=== PATIENT | female | born 1975 ===

== ENCOUNTER 2019-01-05 11:59 | Inpatient (IN) | payer BC ==
[~2019-01-05] VITALS: Ht 167.6 cm; Wt 54.4 kg
--- NOTE | 2019-01-05 14:46 | History and Physical ---
History of Present Illness General Date patient seen: Jan 05, 2019 Reason for Hospitalization: Right breast abscess Present Illness HPI 43 year old healthy female presented with R breast abscess after recent liposuction and fat transfer to bilateral breasts on 12/28/[address] Vishnu Tam. Initially treated outpatient with Cephalexin, then switched to Bactrim , got worse and eventually underwent I & D and sent to the hospital for IV antibiotics. Patient denies diabetes or other medical problems. She does report having multiple abscesses in the past, one on her lower back and one on her chest wall underneath her right breast that required incision and drainage. Similar abscesses in mom and grandma. Denies any recurrent pneumonia or other viral infections. Hasn't been hospitalized with serious infectious as a child nor in adulthood. Travels back and forth to [place] a lot. Patient c/o subjective fever, chills, and malaise. has 7/10 pain in he right breast. Denies chest pain, sob, urinary symptoms, vaginal discharge, polyuria, or polydipsia. PMH: frequent skin abscesses Past Surgical history: Liposuction and fat transfer to bilateral breasts Family history: Mom and grandma also with frequent abscesses Social history: , sexually active with one person (), normal menstrual cycles, nulliparous, denies toxic habits (including etoh, tobacco, drugs), works as a property custodian Allergies: Coded Allergies: LATEX (Verified Allergy, Unknown, 01/05/19) Uncoded Allergies: hay fever (Allergy, Mild, 01/05/19) Medication History No Active Prescriptions or Reported Meds Patient History Healthcare decision maker Resuscitation status Advanced Directive on File Review of Systems Constitutional: Reports: no symptoms, see HPI, sweats, weakness, other Eye: Denies: no symptoms, see HPI, eye pain, blurred vision, tearing, double vision, nose pain, nose congestion, acuity changes, discharge, other ENT: Denies: no symptoms, see HPI, ear pain, ear discharge, nose pain, nose congestion, throat pain, throat swelling, mouth pain, hearing loss, nasal discharge, other Respiratory: Denies: no symptoms, see HPI, cough, orthopnea, shortness of breath, stridor, wheezing, REZA, sputum, other Cardiovascular: Denies: no symptoms, see HPI, chest pain, edema, palpitations, syncope, PND, other Gastrointestinal: Denies: no symptoms, see HPI, abdominal pain, constipation, diarrhea, nausea, vomiting, melena, hematemesis, other Genitourinary: Denies: no symptoms, see HPI, discharge, dysuria, frequency, hematuria, pain, retention, incontinence, urgency, vag bleed/dc, other Musculoskeletal: Denies: no symptoms, see HPI, back pain, gout, joint pain, joint swelling, muscle pain, muscle stiffness, other Skin: Reports: no symptoms, rash, change in color, change in hair/nails, dryness, lesions, other Psychiatric: Denies: no symptoms, see HPI, prior hx, anxiety, depressed feelings, emotional problems, SI, HI, hallucinations, other Neurological: Denies: no symptoms, see HPI, headache, numbness, paresthesia, seizure, tingling, tremors, focal weakness, syncope, dizziness, other Endocrine: Denies: no symptoms, see HPI, excessive sweating, flushing, intolerance to temperature, increased thirst, increased urine, unexplained weight loss, other Hematologic/Lymphatic: Denies: no symptoms, see HPI, anemia, blood clots, easy bleeding, easy bruising, swollen glands, diathesis, other Physical Exam General Appearance: no apparent distress, alert HEENT: normocephalic, atraumatic, anicteric, mucous membranes moist, EOMI, supple, no JVD Neck: supple, normal inspection Respiratory/Chest: lungs clear, normal breath sounds, no respiratory distress Breasts: other - Left breast normal, Right breast extremly tender, +erythema, + dressing c/d/i Cardiovascular/Chest: normal peripheral pulses, normal rate, regular rhythm Abdomen: normal bowel sounds, non tender, soft, no organomegaly, no mass Extremities: normal range of motion, no calf tenderness, no edema Skin Exam: warm/dry Neurologic: events director II-XII grossly normal, no motor/sensory deficits, alert, oriented x 3, normal mood/affect Musculoskeletal: normal muscle bulk BP 100/63, pulse 76, temp 98 F, rr 18, O2 sats 98% on room air Laboratory Tests Test 01/05/19 17:30 White Blood Count 10.9 K/UL (4.8-10.8) H Red Blood Count 3.29 M/UL (4.20-5.40) L Hemoglobin 10.0 G/DL (12.0-16.0) L Hematocrit 28.8 % (37.0-47.0) L Mean Corpuscular Volume 87 FL (80-99) Mean Corpuscular Hemoglobin 30.4 PG (27.0-31.0) Mean Corpuscular Hemoglobin Concent 34.8 G/DL (32.0-36.0) Red Cell Distribution Width 10.5 % (11.6-14.8) L Platelet Count 221 K/UL (150-450) Mean Platelet Volume 7.2 FL (6.5-10.1) Neutrophils (%) (Auto) 73.2 % (45.0-75.0) Lymphocytes (%) (Auto) 15.9 % (20.0-45.0) L Monocytes (%) (Auto) 8.6 % (1.0-10.0) Eosinophils (%) (Auto) 1.5 % (0.0-3.0) Basophils (%) (Auto) 0.9 % (0.0-2.0) Prothrombin Time 10.1 SEC (9.30-11.50) Prothrombin Time INR 0.9 (0.9-1.1) PTT 31 SEC (23-33) Sodium Level 138 MMOL/L (136-145) Potassium Level 3.5 MMOL/L (3.5-5.1) Chloride Level 104 MMOL/L (98-107) Carbon Dioxide Level 30 MMOL/L (21-32) Anion Gap 4 mmol/L (5-15) L Blood Urea Nitrogen 7 mg/dL (7-18) Creatinine 0.6 MG/DL (0.55-1.30) Estimate Glomerular Filtration Rate > 60 mL/min (>60) Glucose Level 115 MG/DL (74-106) H Calcium Level 8.2 MG/DL (8.5-10.1) L Magnesium Level 1.8 MG/DL (1.8-2.4) Total Bilirubin 0.3 MG/DL (0.2-1.0) Aspartate Amino Transferase (AST) 15 U/L (15-37) Alanine Aminotransferase (ALT) 25 U/L (12-78) Alkaline Phosphatase 33 U/L (46-116) L Total Protein 6.6 G/DL (6.4-8.2) Albumin 2.9 G/DL (3.4-5.0) L Globulin 3.7 g/dL Albumin/Globulin Ratio 0.8 (1.0-2.7) L Assessment/Plan Problem List: (1) Abscess of right breast ICD Codes: N61.1 - Abscess of the breast and nipple SNOMED: 48009704 Status: stable Assessment/Plan: 43 year old with R breast abscess after liposuction and fat transfer, now s/p ID. Afebrile, soft BP, mild leukocytosis without left shift, mild lymphopenia. #R breast abscess. ? developing sepsis #History of frequent superficial abscesses. ? Staphylococcal carriage vs underlying primary immunodeficiency i.e chronic granulomatous disease #r/o DM #Mild lymphopenia- ?stress induced- monitor -Admit to [facility] -Dr. Vishnu Tam plastic surgery consult- d/w -follow up gm stain and culture from I&D -IV NS @ 125 ml/hr -IV Cefepime (01/05-) -IV Vancomycin (01/05-) pharmacy to dose -Blood cultures x2 -ID consult with Dr. Rizzo- d/w -Consider outpatient immunology follow up. Genetic testing -Follow up HbA1c #Normocytic anemia (low RDW), unlikely iron deficiency check anemia panel including B12 and folate #Hypoalbuminemia- ?malnutrition vs acute phase Check UA for proteinuria vte ppx: ambulation, scd boots GI ppx: Not indicated Diet: Regular Code status: Full code I spent 70 minutes during this encounter. > 50% spent on counselling and care coordination. Plan of care discussed with patient and , and Dr Fountain. Hansel Jacobs M.D. Jan 05, 2019 14:45
--- NOTE | 2019-01-05 15:00 | NUR ---
NURSE NOTES: Patient arrived in unit accompanied by spouse. Ambulatory, alert and oriented x 4, very pleasant disposition. Assessment of all systems done, vital signs taken and recorded. All belongings accounted for, form signed by the patient. Oriented to room and call light. With surgical wound under right breast, dressing dry and intact. Seen by Dr Jacobs, orders in. HOB elevated. Bed locked in lowest position. Call light within reach. Will continue plan of care.
[2019-01-05] MEDS ORDERED: Acetaminophen 500mg (ES) tab ORAL PRN (15:45)
[2019-01-05] MEDS ORDERED: Tylenol #3 tab (300mg/30mg) ORAL PRN (15:45)
[2019-01-05 16:00] VITALS: BP 100/63
[2019-01-05 18:00] LABS: BASOPHILS % (AUTO) 0.9 % (0.0-2.0); EOSINOPHILS % (AUTO) 1.5 % (0.0-3.0); HEMATOCRIT 28.8 % (37.0-47.0); LYMPHOCYTES % (AUTO) 15.9 % (20.0-45.0); MEAN CORPUSCULAR VOLUME 87 FL (80-99); MONOCYTES % (AUTO) 8.6 % (1.0-10.0); NEUTROPHILS % (AUTO) 73.2 % (45.0-75.0); PLATELET COUNT 221 K/UL (150-450); RED BLOOD COUNT 3.29 M/UL (4.20-5.40); RED CELL DISTRIBUTION WIDTH 10.5 % (11.6-14.8); WHITE BLOOD COUNT 10.9 K/UL (4.8-10.8)
[2019-01-05] MEDS ORDERED: Vancomycin 1.5gm/NS Premix 275 ML IVPB SCH (18:00)
[2019-01-05 18:06] LABS: INR 0.9 (0.9-1.1)
[2019-01-05 18:30] LABS: ALANINE AMINOTRANSFERASE 25 U/L (12-78); ALBUMIN 2.9 G/DL (3.4-5.0); ALBUMIN/GLOBULIN RATIO 0.8 (1.0-2.7); ALKALINE PHOSPHATASE 33 U/L (46-116); ANION GAP 4 mmol/L (5-15); ASPARTATE AMINO TRANSFERASE 15 U/L (15-37); BILIRUBIN,TOTAL 0.3 MG/DL (0.2-1.0); BLOOD UREA NITROGEN 7 mg/dL (7-18); CALCIUM 8.2 MG/DL (8.5-10.1); CARBON DIOXIDE 30 MMOL/L (21-32); CHLORIDE 104 MMOL/L (98-107); CREATININE 0.6 MG/DL (0.55-1.30); POTASSIUM 3.5 MMOL/L (3.5-5.1); SODIUM 138 MMOL/L (136-145)
[2019-01-05] MEDS: HYDROcodone/Acetamin 5/325 tab ORAL PRN (18:57)
[2019-01-05] MEDS: Cefepime HCl 2 GM in D5W 55 ML IVPB SCH (19:03)
--- NOTE | 2019-01-05 19:55 | NUR ---
HAND-OFF: Report given to
--- NOTE | 2019-01-05 19:56 | NUR ---
NURSE NOTES: Received patient in no apparent distress. A&OX4. IV site patent and intact. Bed in lowest position. Call light within reach. Will continue to monitor.
[2019-01-05 20:00] VITALS: BP 96/57
[2019-01-06] VITALS: BP 90/59
[2019-01-06] MEDS: Cefepime HCl 2 GM in D5W 55 ML IVPB SCH ×2 (05:27→17:57)
[2019-01-06] MEDS: HYDROcodone/Acetamin 5/325 tab ORAL PRN ×3 (05:33→18:04)
[2019-01-06 06:53] LABS: BASOPHILS % (AUTO) 0.9 % (0.0-2.0); EOSINOPHILS % (AUTO) 2.7 % (0.0-3.0); HEMATOCRIT 28.8 % (37.0-47.0); HEMOGLOBIN 9.6 G/DL (12.0-16.0); LYMPHOCYTES % (AUTO) 18.9 % (20.0-45.0); MEAN CORPUSCULAR VOLUME 90 FL (80-99); MONOCYTES % (AUTO) 10.1 % (1.0-10.0); NEUTROPHILS % (AUTO) 67.4 % (45.0-75.0); PLATELET COUNT 202 K/UL (150-450); RED BLOOD COUNT 3.21 M/UL (4.20-5.40); RED CELL DISTRIBUTION WIDTH 11.7 % (11.6-14.8); WHITE BLOOD COUNT 9.4 K/UL (4.8-10.8)
[2019-01-06 07:25] LABS: ALANINE AMINOTRANSFERASE 27 U/L (12-78); ALBUMIN 2.7 G/DL (3.4-5.0); ALBUMIN/GLOBULIN RATIO 0.8 (1.0-2.7); ALKALINE PHOSPHATASE 38 U/L (46-116); ANION GAP 4 mmol/L (5-15); ASPARTATE AMINO TRANSFERASE 17 U/L (15-37); BILIRUBIN,TOTAL 0.3 MG/DL (0.2-1.0); BLOOD UREA NITROGEN 8 mg/dL (7-18); CALCIUM 8.2 MG/DL (8.5-10.1); CARBON DIOXIDE 29 MMOL/L (21-32); CHLORIDE 104 MMOL/L (98-107); CREATININE 0.7 MG/DL (0.55-1.30); FERRITIN 137 NG/ML (8-388); SODIUM 137 MMOL/L (136-145)
--- NOTE | 2019-01-06 07:35 | NUR ---
HAND-OFF: Report given to Zara PRINCE.
[2019-01-06 07:53] LABS: % IRON SATURATION 8 % (15-50); IRON 18 ug/dL (50-175); TOTAL IRON BINDING CAPACITY 229 ug/dL (250-450)
[2019-01-06 08:00] VITALS: BP 99/65
--- NOTE | 2019-01-06 08:05 | NUR ---
NURSE NOTES: Pt received from Timbo PRINCE. Pt awake, AOx4 with no complaints of pain and no s/sx of distress. RR even and unlabored on RA. Dressing dry and intact. Pt requesting Claritin for congestion. Side rails upx2, bed low and locked, call light within reach. Will continue to monitor.
[2019-01-06] MEDS: Vancomycin 750mg/NS 275ml IVPB SCH ×4 (08:46→20:25)
--- NOTE | 2019-01-06 10:33 | General Progress Note ---
Assessment/Plan Problem List: (1) Abscess of right breast ICD Codes: N61.1 - Abscess of the breast and nipple SNOMED: 60230779 (2) Iron deficiency anemia ICD Codes: D50.9 - Iron deficiency anemia, unspecified SNOMED: 83745112 (3) Mild protein-calorie malnutrition ICD Codes: E44.1 - Mild protein-calorie malnutrition SNOMED: 185078632 (4) Lymphopenia ICD Codes: D72.810 - Lymphocytopenia SNOMED: 06003207 Status: stable Assessment/Plan: 43 year old with R breast abscess after liposuction and fat transfer, now s/p ID. Afebrile, soft BP, mild leukocytosis without left shift. #R breast cellulitis/ abscess #History of frequent superficial abscesses. ? Staphylococcal carriage vs underlying primary immunodeficiency (i.e chronic granulomatous disease) #r/o DM HbA1c 4.9 -medsurg -Dr. Vishnu Tam plastic surgery consult- d/w -follow up gm stain and culture from I&D ----> 3+ gram positive cocci, 2+ gram negative rods, 3+ PMN's, Anaerobic culture: 4+ Prevotella Bivia Beta lactamase positive -IV NS @ 125 ml/hr -IV Cefepime (01/05-) -IV Vancomycin (01/05-) pharmacy to dose -ADD IV metronidazole (01/06-) -Blood cultures x2 -ID consult with Dr. Rizzo- Dr. Crabtree covering d/w -Consider outpatient immunology follow up. Genetic testing -Nasal swab for MRSA #Normocytic anemia, Iron panel consistent with iron deficiency. B12 and folate levels are okay. Has heavy menses and also could be component of nutritional deficiency and lack of eating red meat. Patient knows she has iron deficiency, takes supplements on and off, doesn't think it works. -Will hold off on iron supplements since has an infection now. #Hypoalbuminemia, lymphopenia. consistent with mild protein calorie malnutrition. Says recent HIV testing is negative check UA Encouraged po intake. Patient to ask for previous lab results. She is not aware of low albumin. vte ppx: ambulation, scd boots GI ppx: Not indicated Diet: Regular Code status: Full code I spent 30 minutes during this encounter. > 50% spent on counselling and care coordination. Plan of care discussed with patient and , and Dr Fountain. Subjective Date patient seen: Jan 06, 2019 ROS Limited/Unobtainable: No Constitutional: Reports: no symptoms, chills, diaphoresis, fever, malaise, weakness, other - pain in the right breast HEENT: Denies: no symptoms, eye pain, blurred vision, tearing, double vision, ear pain, ear discharge, nose pain, nose congestion, throat pain, throat swelling, mouth pain, mouth swelling, other Cardiovascular: Denies: no symptoms, chest pain, edema, irregular heart rate, lightheadedness, palpitations, syncope, other Respiratory: Denies: no symptoms, cough, orthopnea, shortness of breath, SOB with excertion, SOB at rest, sputum, stridor, wheezing, other Gastrointestinal/Abdominal: Denies: no symptoms, abdomen distended, abdominal pain, black stools, tarry stools, blood in stool, constipated, diarrhea, difficulty swallowing, nausea, poor appetite, poor fluid intake, rectal bleeding , vomiting, other Genitourinary: Denies: no symptoms, burning, discharge, frequency, flank pain, hematuria, incontinence, pain, urgency, other Endocrine: Denies: no symptoms, excessive sweating, flushing, intolerance to cold, intolerance to heat, increased hunger, increased thirst, increased urine, unexplained weight gain, unexplained weight loss, other Hematologic/Lymphatic: Denies: no symptoms, anemia, easy bleeding, easy bruising, other Allergies: Coded Allergies: LATEX (Verified Allergy, Unknown, 01/05/19) Uncoded Allergies: hay fever (Allergy, Mild, 01/05/19) Subjective seen and examined. VSS. no fever or chills. wondering when she can go home Objective Last 24 Hour Vital Signs Date Time Temp Pulse Resp B/P (MAP) Pulse Ox O2 Delivery O2 Flow Rate FiO2 01/06/19 09:00 Room Air 01/06/19 08:00 98.0 88 18 99/65 (76) 97 01/06/19 04:00 18 01/06/19 00:00 98.3 77 18 90/59 (69) 97 01/05/19 21:00 Room Air 01/05/19 20:00 98.0 84 17 96/57 (70) 98 01/05/19 16:00 98.0 76 18 100/63 (75) 01/05/19 15:19 Room Air Intake and Output 01/05/19 01/06/19 19:00 07:00 Intake Total 1835 ml Balance 1835 ml Intake Oral 780 ml IV Total 1055 ml # Voids 3 Laboratory Tests 01/05/19 17:30: White Blood Count 10.9H, Red Blood Count 3.29L, Hemoglobin 10.0L, Hematocrit 28.8L, Mean Corpuscular Volume 87, Mean Corpuscular Hemoglobin 30.4, Mean Corpuscular Hemoglobin Concent 34.8, Red Cell Distribution Width 10.5L, Platelet Count 221, Mean Platelet Volume 7.2, Neutrophils (%) (Auto) 73.2, Lymphocytes (%) (Auto) 15.9L, Monocytes (%) (Auto) 8.6, Eosinophils (%) (Auto) 1.5, Basophils (%) (Auto) 0.9, Prothrombin Time 10.1, Prothromb Time International Ratio 0.9, Activated Partial Thromboplast Time 31, Sodium Level 138, Potassium Level 3.5, Chloride Level 104, Carbon Dioxide Level 30, Anion Gap 4L, Blood Urea Nitrogen 7, Creatinine 0.6, Estimat Glomerular Filtration Rate > 60, Glucose Level 115H, Calcium Level 8.2L, Magnesium Level 1.8, Total Bilirubin 0.3, Aspartate Amino Transf (AST/SGOT) 15, Alanine Aminotransferase ( ALT/SGPT) 25, Alkaline Phosphatase 33L, Total Protein 6.6, Albumin 2.9L, Globulin 3.7, Albumin/Globulin Ratio 0.8L 01/06/19 06:40: White Blood Count 9.4, Red Blood Count 3.21L, Hemoglobin 9.6L, Hematocrit 28.8L , Mean Corpuscular Volume 90, Mean Corpuscular Hemoglobin 29.9, Mean Corpuscular Hemoglobin Concent 33.3, Red Cell Distribution Width 11.7, Platelet Count 202, Mean Platelet Volume 6.9, Neutrophils (%) (Auto) 67.4, Lymphocytes (% ) (Auto) 18.9L, Monocytes (%) (Auto) 10.1H, Eosinophils (%) (Auto) 2.7, Basophils (%) (Auto) 0.9, Sodium Level 137, Potassium Level 4.0, Chloride Level 104, Carbon Dioxide Level 29, Anion Gap 4L, Blood Urea Nitrogen 8, Creatinine 0.7, Estimat Glomerular Filtration Rate > 60, Glucose Level 97, Calcium Level 8.2L, Total Bilirubin 0.3, Aspartate Amino Transf (AST/SGOT) 17, Alanine Aminotransferase (ALT/SGPT) 27, Alkaline Phosphatase 38L, Total Protein 6.2L, Albumin 2.7L, Globulin 3.5, Albumin/Globulin Ratio 0.8L, Hemoglobin A1c 4.9, Iron Level 18L, Total Iron Binding Capacity 229L, Percent Iron Saturation 8L, Unsaturated Iron Binding 211, Ferritin 137, Vitamin B12 Level 1360H, Folate 30.6 Height (Feet): 5 Height (Inches): 6.00 Weight (Pounds): 120 Objective General Appearance: no apparent distress, alert HEENT: normocephalic, atraumatic, anicteric, mucous membranes moist, EOMI, supple, no JVD Neck: supple, normal inspection Respiratory/Chest: lungs clear, normal breath sounds, no respiratory distress Breasts: other - Left breast normal, Right breast extremly tender, +erythema, + dressing c/d/i Cardiovascular/Chest: normal peripheral pulses, normal rate, regular rhythm Abdomen: normal bowel sounds, non tender, soft, no organomegaly, no mass Extremities: normal range of motion, no calf tenderness, no edema Skin Exam: warm/dry 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, no motor/sensory deficits, alert, oriented x 3, normal mood/affect Musculoskeletal: normal muscle bulk BP 100/63, pulse 76, temp 98 F, rr 18, O2 sats 98% on room air Laboratory Tests Test 01/05/19 17:30 01/06/19 06:40 White Blood Count 10.9 K/UL (4.8-10.8) H 9.4 K/UL (4.8-10.8) Red Blood Count 3.29 M/UL (4.20-5.40) L 3.21 M/UL (4.20-5.40) L Hemoglobin 10.0 G/DL (12.0-16.0) L 9.6 G/DL (12.0-16.0) L Hematocrit 28.8 % (37.0-47.0) L 28.8 % (37.0-47.0) L Mean Corpuscular Volume 87 FL (80-99) 90 FL (80-99) Mean Corpuscular Hemoglobin 30.4 PG (27.0-31.0) 29.9 PG (27.0-31.0) Mean Corpuscular Hemoglobin Concent 34.8 G/DL (32.0-36.0) 33.3 G/DL (32.0-36.0) Red Cell Distribution Width 10.5 % (11.6-14.8) L 11.7 % (11.6-14.8) Platelet Count 221 K/UL (150-450) 202 K/UL (150-450) Mean Platelet Volume 7.2 FL (6.5-10.1) 6.9 FL (6.5-10.1) Neutrophils (%) (Auto) 73.2 % (45.0-75.0) 67.4 % (45.0-75.0) Lymphocytes (%) (Auto) 15.9 % (20.0-45.0) L 18.9 % (20.0-45.0) L Monocytes (%) (Auto) 8.6 % (1.0-10.0) 10.1 % (1.0-10.0) H Eosinophils (%) (Auto) 1.5 % (0.0-3.0) 2.7 % (0.0-3.0) Basophils (%) (Auto) 0.9 % (0.0-2.0) 0.9 % (0.0-2.0) Prothrombin Time 10.1 SEC (9.30-11.50) Prothrombin Time INR 0.9 (0.9-1.1) PTT 31 SEC (23-33) Sodium Level 138 MMOL/L (136-145) 137 MMOL/L (136-145) Potassium Level 3.5 MMOL/L (3.5-5.1) 4.0 MMOL/L (3.5-5.1) Chloride Level 104 MMOL/L (98-107) 104 MMOL/L (98-107) Carbon Dioxide Level 30 MMOL/L (21-32) 29 MMOL/L (21-32) Anion Gap 4 mmol/L (5-15) L 4 mmol/L (5-15) L Blood Urea Nitrogen 7 mg/dL (7-18) 8 mg/dL (7-18) Creatinine 0.6 MG/DL (0.55-1.30) 0.7 MG/DL (0.55-1.30) Estimate Glomerular Filtration Rate > 60 mL/min (>60) > 60 mL/min (>60) Glucose Level 115 MG/DL (74-106) H 97 MG/DL (74-106) Calcium Level 8.2 MG/DL (8.5-10.1) L 8.2 MG/DL (8.5-10.1) L Magnesium Level 1.8 MG/DL (1.8-2.4) Total Bilirubin 0.3 MG/DL (0.2-1.0) 0.3 MG/DL (0.2-1.0) Aspartate Amino Transferase (AST) 15 U/L (15-37) 17 U/L (15-37) Alanine Aminotransferase (ALT) 25 U/L (12-78) 27 U/L (12-78) Alkaline Phosphatase 33 U/L (46-116) L 38 U/L (46-116) L Total Protein 6.6 G/DL (6.4-8.2) 6.2 G/DL (6.4-8.2) L Albumin 2.9 G/DL (3.4-5.0) L 2.7 G/DL (3.4-5.0) L Globulin 3.7 g/dL 3.5 g/dL Albumin/Globulin Ratio 0.8 (1.0-2.7) L 0.8 (1.0-2.7) L Reticulocyte Count Pending Hemoglobin A1c 4.9 % (4.3-6.0) Iron Level 18 ug/dL (50-175) L Total Iron Binding Capacity 229 ug/dL (250-450) L Percent Iron Saturation 8 % (15-50) L Unsaturated Iron Binding 211 ug/dL (112-346) Ferritin 137 NG/ML (8-388) Vitamin B12 Level 1360 PG/ML (193-986) H Folate 30.6 NG/ML (8.6-58.9) Hansel Jacobs M.D. Jan 06, 2019 10:33
--- NOTE | 2019-01-06 11:00 | NUR ---
NURSE NOTES: Dressing changed.
[2019-01-06 12:00] VITALS: BP 115/77
[2019-01-06] MEDS: Ascorbic Acid 500mg tab ORAL SCH ×2 (12:45→17:57)
--- NOTE | 2019-01-06 13:06 | General Progress Note ---
Assessment/Plan Status: stable Status Narrative s/p lipo with fat transfer to breasts complicated by cellulitis and abscess formation to right breast. s/p I and D of right Breast Assessment/Plan: IV abx per ID ID consult apprecated daily dressing changes to be dome by me Subjective Date patient seen: Jan 06, 2019 ROS Limited/Unobtainable: No Constitutional: Denies: no symptoms, chills, diaphoresis, fever, malaise, weakness, other HEENT: Denies: no symptoms, eye pain, blurred vision, tearing, double vision, ear pain, ear discharge, nose pain, nose congestion, throat pain, throat swelling, mouth pain, mouth swelling, other Cardiovascular: Denies: no symptoms, chest pain, edema, irregular heart rate, lightheadedness, palpitations, syncope, other Respiratory: Denies: no symptoms, cough, orthopnea, shortness of breath, SOB with excertion, SOB at rest, sputum, stridor, wheezing, other Gastrointestinal/Abdominal: Denies: no symptoms, abdomen distended, abdominal pain, black stools, tarry stools, blood in stool, constipated, diarrhea, difficulty swallowing, nausea, poor appetite, poor fluid intake, rectal bleeding , vomiting, other Genitourinary: Denies: no symptoms, burning, discharge, frequency, flank pain, hematuria, incontinence, pain, urgency, other Neurologic/Psychiatric: Denies: no symptoms, anxiety, depressed, emotional problems, headache, numbness, paresthesia, pre-existing deficit, seizure, tingling, tremors, weakness, other Endocrine: Denies: no symptoms, excessive sweating, flushing, intolerance to cold, intolerance to heat, increased hunger, increased thirst, increased urine, unexplained weight gain, unexplained weight loss, other Hematologic/Lymphatic: Denies: no symptoms, anemia, easy bleeding, easy bruising, other Allergies: Coded Allergies: LATEX (Verified Allergy, Unknown, 01/05/19) Uncoded Allergies: hay fever (Allergy, Mild, 01/05/19) All Systems: reviewed and negative except above Subjective feeling better, pain controlled, denies F/C/NV Objective Last 24 Hour Vital Signs Date Time Temp Pulse Resp B/P (MAP) Pulse Ox O2 Delivery O2 Flow Rate FiO2 01/06/19 12:25 98.3 01/06/19 12:00 98.3 97 18 115/77 (90) 98 01/06/19 09:00 Room Air 01/06/19 08:00 98.0 88 18 99/65 (76) 97 01/06/19 04:00 18 01/06/19 00:00 98.3 77 18 90/59 (69) 97 01/05/19 21:00 Room Air 01/05/19 20:00 98.0 84 17 96/57 (70) 98 01/05/19 16:00 98.0 76 18 100/63 (75) 01/05/19 15:19 Room Air Intake and Output 01/05/19 01/06/19 19:00 07:00 Intake Total 1835 ml Balance 1835 ml Intake Oral 780 ml IV Total 1055 ml # Voids 3 Laboratory Tests 01/05/19 17:30: White Blood Count 10.9H, Red Blood Count 3.29L, Hemoglobin 10.0L, Hematocrit 28.8L, Mean Corpuscular Volume 87, Mean Corpuscular Hemoglobin 30.4, Mean Corpuscular Hemoglobin Concent 34.8, Red Cell Distribution Width 10.5L, Platelet Count 221, Mean Platelet Volume 7.2, Neutrophils (%) (Auto) 73.2, Lymphocytes (%) (Auto) 15.9L, Monocytes (%) (Auto) 8.6, Eosinophils (%) (Auto) 1.5, Basophils (%) (Auto) 0.9, Prothrombin Time 10.1, Prothromb Time International Ratio 0.9, Activated Partial Thromboplast Time 31, Sodium Level 138, Potassium Level 3.5, Chloride Level 104, Carbon Dioxide Level 30, Anion Gap 4L, Blood Urea Nitrogen 7, Creatinine 0.6, Estimat Glomerular Filtration Rate > 60, Glucose Level 115H, Calcium Level 8.2L, Magnesium Level 1.8, Total Bilirubin 0.3, Aspartate Amino Transf (AST/SGOT) 15, Alanine Aminotransferase ( ALT/SGPT) 25, Alkaline Phosphatase 33L, Total Protein 6.6, Albumin 2.9L, Globulin 3.7, Albumin/Globulin Ratio 0.8L 01/06/19 06:40: White Blood Count 9.4, Red Blood Count 3.21L, Hemoglobin 9.6L, Hematocrit 28.8L , Mean Corpuscular Volume 90, Mean Corpuscular Hemoglobin 29.9, Mean Corpuscular Hemoglobin Concent 33.3, Red Cell Distribution Width 11.7, Platelet Count 202, Mean Platelet Volume 6.9, Neutrophils (%) (Auto) 67.4, Lymphocytes (% ) (Auto) 18.9L, Monocytes (%) (Auto) 10.1H, Eosinophils (%) (Auto) 2.7, Basophils (%) (Auto) 0.9, Sodium Level 137, Potassium Level 4.0, Chloride Level 104, Carbon Dioxide Level 29, Anion Gap 4L, Blood Urea Nitrogen 8, Creatinine 0.7, Estimat Glomerular Filtration Rate > 60, Glucose Level 97, Calcium Level 8.2L, Total Bilirubin 0.3, Aspartate Amino Transf (AST/SGOT) 17, Alanine Aminotransferase (ALT/SGPT) 27, Alkaline Phosphatase 38L, Total Protein 6.2L, Albumin 2.7L, Globulin 3.5, Albumin/Globulin Ratio 0.8L, Reticulocyte Count [ Pending], Hemoglobin A1c 4.9, Iron Level 18L, Total Iron Binding Capacity 229L, Percent Iron Saturation 8L, Unsaturated Iron Binding 211, Ferritin 137, Vitamin B12 Level 1360H, Folate 30.6 Height (Feet): 5 Height (Inches): 6.00 Weight (Pounds): 120 Objective Right beast swelling improved, minimal erythema but still present. packing changed at bedside. min serous drainage Vishnu Tam MD Jan 06, 2019 13:06
[2019-01-06 15:58] VITALS: BP 121/74
--- NOTE | 2019-01-06 16:19 | NUR ---
CASE MANAGEMENT:INITIAL REVIEW DIRECT ADMIT: PMH: S/P LIPOSUCTION AND FAT TRANSFER TO RIGHT BREAST SI: RIGHT BREAST ABSCESS 98.0 76 18 100/63 98% ON RA CA+ 8.2 IS: IV VANCOMYCIN Q12HR IVF NS @125HR IV CEFEPIME Q12HR 3E MED /SURG CASE MANAGEMENT: REVIEW 01/06/19 SI: RIGHT BREAST ABSCESS 98.0 88 18 99/65 97% ON RA CA+ 8.2 RBC 3.21 H/H 9.6/28.8 IS: IV VANCOMYCIN Q12HR IVF NS @125HR IV CEFEPIME Q12HR IV METRONIDAZOLE Q8HR FEOSOL PO TID : 3E MED SURG UNIT
--- NOTE | 2019-01-06 19:29 | NUR ---
HAND-OFF: Report given to Cherise PRINCE. Patient stable.
--- NOTE | 2019-01-06 19:31 | NUR ---
NURSE NOTES: Patient is in bed, awake and alert x4. On room air with no signs of distress or SOB. Dressing on R breast dry and intact. Bed locked and in lowest position. Call light within reach. Will continue to monitor.
[2019-01-06 20:00] VITALS: BP 112/74
--- NOTE | 2019-01-06 21:03 | Consultation ---
DATE OF CONSULTATION: 01/06/2019 INFECTIOUS DISEASE CONSULTATION This consult is for coverage of Dr. Rizzo. CONSULTING PHYSICIAN: Lg Crabtree M.D. PRIMARY ATTENDING PHYSICIAN: Alex Zee M.D. REASON FOR CONSULT: Right breast abscess. HISTORY OF PRESENT ILLNESS: This is a 43-year-old white female admitted yesterday from home. The patient has a history of recent liposuction and fat transfer to both breasts. Four days after surgery she developed pain and subjective fever. Pain is in the right breast area. Yesterday, she had a visit to the surgeon's office and they did an I and D of abscess in the right breast area. The patient states that she also had frequent abscesses in the past. PAST MEDICAL HISTORY: Iron deficiency anemia, had previous skin abscess. ALLERGIES: Latex. MEDICATIONS: Vancomycin, loratadine, sodium chloride, diphenhydramine, cefepime, Zofran, [place], and Tylenol No. 3. SOCIAL HISTORY: . No history of alcohol, drug abuse, and smoking. REVIEW OF SYSTEMS: No fever and no chills in the hospital. No coughing. No shortness of breath. No chest pain. No nausea. No vomiting. No dysuria. PHYSICAL EXAMINATION: VITAL SIGNS: Temperature is 98, pulse 88, and blood pressure 99/65. GENERAL APPEARANCE: No acute distress. Seems to be thin. HEAD AND NECK: [place] conjunctivae. No oral lesion. HEART: S1, S2, regular. LUNGS: Clear. ABDOMEN: Soft, nontender. EXTREMITIES: No edema. NEUROLOGIC: She is awake, alert, and oriented x3. Ambulatory. SKIN: Small surgical dressing in the middle right breast. LABORATORY AND DIAGNOSTIC DATA: Sodium 137, potassium 4, chloride 104, bicarb 29, BUN 8, and creatinine 0.7. Iron is 18. Total iron binding . Albumin is also low at 2.7. WBC 9.4, hemoglobin 9.6, hematocrit 28.8. Lymphocyte count is 18.9. Monocyte is slightly elevated at 10.1. IMPRESSION: 1. Right breast abscess, status post I and D. 2. History of multiple abscess will try to rule out methicillin resistant Staphylococcus aureus colonization, although the patient's abscesses were far apart in time. 3. The patient has iron deficiency anemia. RECOMMENDATION: Continue cefepime and vancomycin. We will ask for nasal swab for MRSA. We will consider checking immunoglobulin level. At the end of my exam, I thank Dr. Zee for involving me in the care of this patient. Lg Crabtree M.D. DR: WALT JOB#: [id number] CC: KATY
[2019-01-07] VITALS: BP 94/70
[2019-01-07 04:00] VITALS: BP 97/64
[2019-01-07] MEDS: Cefepime HCl 2 GM in D5W 55 ML IVPB SCH ×2 (05:18→17:59)
[2019-01-07 06:04] LABS: BASOPHILS % (AUTO) 1.2 % (0.0-2.0); HEMATOCRIT 28.2 % (37.0-47.0); HEMOGLOBIN 9.4 G/DL (12.0-16.0); LYMPHOCYTES % (AUTO) 20.6 % (20.0-45.0); MEAN CORPUSCULAR VOLUME 89 FL (80-99); MONOCYTES % (AUTO) 9.1 % (1.0-10.0); NEUTROPHILS % (AUTO) 66.1 % (45.0-75.0); PLATELET COUNT 204 K/UL (150-450); RED BLOOD COUNT 3.16 M/UL (4.20-5.40); RED CELL DISTRIBUTION WIDTH 11.6 % (11.6-14.8); WHITE BLOOD COUNT 7.2 K/UL (4.8-10.8)
[2019-01-07 06:39] LABS: ANION GAP 3 mmol/L (5-15); BLOOD UREA NITROGEN 7 mg/dL (7-18); CALCIUM 7.9 MG/DL (8.5-10.1); CARBON DIOXIDE 27 MMOL/L (21-32); CHLORIDE 105 MMOL/L (98-107); CREATININE 0.7 MG/DL (0.55-1.30); POTASSIUM 3.6 MMOL/L (3.5-5.1); SODIUM 135 MMOL/L (136-145)
--- NOTE | 2019-01-07 07:11 | NUR ---
NURSE NOTES: Patient calcium noted to be 7.9 this morning. organ builder notified. Left message with primary MD. Awaiting callback.
--- NOTE | 2019-01-07 07:18 | NUR ---
HAND-OFF: Report given to NIKI Zuñiga.
--- NOTE | 2019-01-07 07:20 | NUR ---
NURSE NOTES: Pt received from Cherise PRINCE. Pt sleeping. No s/sx of distress. RR even and unlabored on RA. Side rails upx2, bed low and locked, call light within reach. Will continue to monitor.
--- NOTE | 2019-01-07 07:47 | NUR ---
NURSE NOTES: Spoke with Dr. Morales regarding Calcium of 7.9. Per MD since albumin is low too at 2.7 it is okay but to report it to Dr. Jacobs when she rounds.
[2019-01-07 08:00] VITALS: BP 108/72
[2019-01-07] MEDS: Vancomycin 750mg/NS 275ml IVPB SCH ×8 (09:00→21:59)
[2019-01-07] MEDS: Ascorbic Acid 500mg tab ORAL SCH ×3 (09:11→17:59)
--- NOTE | 2019-01-07 09:41 | General Progress Note ---
Assessment/Plan Problem List: (1) Abscess of right breast ICD Codes: N61.1 - Abscess of the breast and nipple SNOMED: 28039031 (2) Iron deficiency anemia ICD Codes: D50.9 - Iron deficiency anemia, unspecified SNOMED: 79513833 (3) Mild protein-calorie malnutrition ICD Codes: E44.1 - Mild protein-calorie malnutrition SNOMED: 343796915 (4) Lymphopenia ICD Codes: D72.810 - Lymphocytopenia SNOMED: 73987381 Status: stable Assessment/Plan: 43 year old with R breast abscess after liposuction and fat transfer, now s/p ID. Afebrile, normal BP, mild leukocytosis without left shift resolving. #R breast cellulitis/ abscess. #History of frequent superficial abscesses. ? Staphylococcal carriage vs underlying primary immunodeficiency (i.e chronic granulomatous disease) #r/o DM HbA1c 4.9 -medsurg -Dr. Vishnu Tam plastic surgery consult- d/w -follow up gm stain and culture from I&D ----> 3+ gram positive cocci, 2+ gram negative rods, 3+ PMN's, Anaerobic culture: 4+ Prevotella [place] Beta lactamase positive -IV NS @ 50 ml/hr -IV Cefepime (01/05-) -IV Vancomycin (01/05-) pharmacy to dose -ADD IV metronidazole (01/06-) -Probiotics- patient has her own, asked nurse to send to the pharmacy to register. -Blood cultures x2 -ID consult with Dr. Rizzo- d/w -Consider outpatient immunology follow up. Genetic testing -Nasal swab culture for MRSA -Pain control -d/w rn #Normocytic anemia, Iron panel consistent with iron deficiency. B12 and folate levels are okay. Has heavy menses and also could be component of nutritional deficiency and lack of eating red meat. Patient knows she has iron deficiency, takes supplements on and off, doesn't think it works. -Will hold off on iron supplements since has an infection now. -encourage PO intake #Hypoalbuminemia, lymphopenia. consistent with mild protein calorie malnutrition. Says recent HIV testing is negative #Hypocalcemia- corrected is normal at 8.9 . due to low albumin check UA Encouraged po intake. Patient to ask for previous lab results. She is not aware of low albumin. vte ppx: ambulation, scd boots GI ppx: Famotidine Diet: Regular Code status: Full code I spent 40 minutes during this encounter. > 50% spent on counselling and care coordination. Plan of care discussed with patient and , and Dr Fountain. Subjective Date patient seen: Jan 07, 2019 ROS Limited/Unobtainable: No Constitutional: Denies: no symptoms, chills, diaphoresis, fever, malaise, weakness, other HEENT: Denies: no symptoms, eye pain, blurred vision, tearing, double vision, ear pain, ear discharge, nose pain, nose congestion, throat pain, throat swelling, mouth pain, mouth swelling, other Cardiovascular: Denies: no symptoms, chest pain, edema, irregular heart rate, lightheadedness, palpitations, syncope, other Respiratory: Reports: cough - coughing all night ; Denies: no symptoms, orthopnea, shortness of breath, SOB with excertion, SOB at rest, sputum, stridor , wheezing, other Gastrointestinal/Abdominal: Reports: no symptoms, abdomen distended, abdominal pain, black stools, tarry stools, blood in stool, constipated, diarrhea, difficulty swallowing, poor appetite, poor fluid intake, rectal bleeding, vomiting, other - stomach irritated Genitourinary: Denies: no symptoms, burning, discharge, frequency, flank pain, hematuria, incontinence, pain, urgency, other Neurologic/Psychiatric: Denies: no symptoms, anxiety, depressed, emotional problems, headache, numbness, paresthesia, pre-existing deficit, seizure, tingling, tremors, weakness, other Endocrine: Denies: no symptoms, excessive sweating, flushing, intolerance to cold, intolerance to heat, increased hunger, increased thirst, increased urine, unexplained weight gain, unexplained weight loss, other Hematologic/Lymphatic: Denies: no symptoms, anemia, easy bleeding, easy bruising, other Allergies: Coded Allergies: LATEX (Verified Allergy, Unknown, 01/05/19) Uncoded Allergies: hay fever (Allergy, Mild, 01/05/19) Subjective seen and examined. VSS. no fever or chills. has some stomach upset and asking for omeprazole. Taking her own probiotics. was coughing all night. ambulating. Wondering when she can go home Objective Last 24 Hour Vital Signs Date Time Temp Pulse Resp B/P (MAP) Pulse Ox O2 Delivery O2 Flow Rate FiO2 01/07/19 08:00 98.1 88 17 108/72 (84) 98 01/07/19 07:55 Room Air 01/07/19 04:00 98.2 80 18 97/64 (75) 98 01/07/19 00:00 98.3 80 19 94/70 (78) 98 01/06/19 21:00 Room Air 01/06/19 20:00 98.0 84 18 112/74 (87) 98 01/06/19 18:38 98.3 01/06/19 15:58 98.3 80 18 121/74 (90) 98 01/06/19 12:00 98.3 97 18 115/77 (90) 98 Intake and Output 01/06/19 01/07/19 18:59 06:59 Intake Total 2242.500 ml 602.5 ml Balance 2242.500 ml 602.5 ml Intake Oral 800 ml 480 ml IV Total 1442.500 ml 122.5 ml # Voids 3 3 Laboratory Tests 01/07/19 05:40: White Blood Count 7.2, Red Blood Count 3.16L, Hemoglobin 9.4L, Hematocrit 28.2L , Mean Corpuscular Volume 89, Mean Corpuscular Hemoglobin 29.8, Mean Corpuscular Hemoglobin Concent 33.4, Red Cell Distribution Width 11.6, Platelet Count 204, Mean Platelet Volume 6.7, Neutrophils (%) (Auto) 66.1, Lymphocytes (% ) (Auto) 20.6, Monocytes (%) (Auto) 9.1, Eosinophils (%) (Auto) 3.0, Basophils ( %) (Auto) 1.2, Sodium Level 135L, Potassium Level 3.6, Chloride Level 105, Carbon Dioxide Level 27, Anion Gap 3L, Blood Urea Nitrogen 7, Creatinine 0.7, Estimat Glomerular Filtration Rate > 60, Glucose Level 106, Calcium Level 7.9L, Thyroid Stimulating Hormone (TSH) 1.425 01/07/19 08:00: Vancomycin Level Trough 4.9L Height (Feet): 5 Height (Inches): 6.00 Weight (Pounds): 120 Objective General Appearance: no apparent distress, alert HEENT: normocephalic, atraumatic, anicteric, mucous membranes moist, EOMI, supple, no JVD Neck: supple, normal inspection Respiratory/Chest: lungs clear, normal breath sounds, no respiratory distress Breasts: other - Left breast normal, Right breast extremly tender, +erythema, + dressing c/d/i Cardiovascular/Chest: normal peripheral pulses, normal rate, regular rhythm Abdomen: normal bowel sounds, non tender, soft, no organomegaly, no mass Extremities: normal range of motion, no calf tenderness, no edema Skin Exam: warm/dry Neurologic: manager telemarketing II-XII grossly normal, no motor/sensory deficits, alert, oriented x 3, normal mood/affect Musculoskeletal: normal muscle bulk BP 100/63, pulse 76, temp 98 F, rr 18, O2 sats 98% on room air Laboratory Tests Test 01/05/19 17:30 01/06/19 06:40 White Blood Count 10.9 K/UL (4.8-10.8) H 9.4 K/UL (4.8-10.8) Red Blood Count 3.29 M/UL (4.20-5.40) L 3.21 M/UL (4.20-5.40) L Hemoglobin 10.0 G/DL (12.0-16.0) L 9.6 G/DL (12.0-16.0) L Hematocrit 28.8 % (37.0-47.0) L 28.8 % (37.0-47.0) L Mean Corpuscular Volume 87 FL (80-99) 90 FL (80-99) Mean Corpuscular Hemoglobin 30.4 PG (27.0-31.0) 29.9 PG (27.0-31.0) Mean Corpuscular Hemoglobin Concent 34.8 G/DL (32.0-36.0) 33.3 G/DL (32.0-36.0) Red Cell Distribution Width 10.5 % (11.6-14.8) L 11.7 % (11.6-14.8) Platelet Count 221 K/UL (150-450) 202 K/UL (150-450) Mean Platelet Volume 7.2 FL (6.5-10.1) 6.9 FL (6.5-10.1) Neutrophils (%) (Auto) 73.2 % (45.0-75.0) 67.4 % (45.0-75.0) Lymphocytes (%) (Auto) 15.9 % (20.0-45.0) L 18.9 % (20.0-45.0) L Monocytes (%) (Auto) 8.6 % (1.0-10.0) 10.1 % (1.0-10.0) H Eosinophils (%) (Auto) 1.5 % (0.0-3.0) 2.7 % (0.0-3.0) Basophils (%) (Auto) 0.9 % (0.0-2.0) 0.9 % (0.0-2.0) Prothrombin Time 10.1 SEC (9.30-11.50) Prothrombin Time INR 0.9 (0.9-1.1) PTT 31 SEC (23-33) Sodium Level 138 MMOL/L (136-145) 137 MMOL/L (136-145) Potassium Level 3.5 MMOL/L (3.5-5.1) 4.0 MMOL/L (3.5-5.1) Chloride Level 104 MMOL/L (98-107) 104 MMOL/L (98-107) Carbon Dioxide Level 30 MMOL/L (21-32) 29 MMOL/L (21-32) Anion Gap 4 mmol/L (5-15) L 4 mmol/L (5-15) L Blood Urea Nitrogen 7 mg/dL (7-18) 8 mg/dL (7-18) Creatinine 0.6 MG/DL (0.55-1.30) 0.7 MG/DL (0.55-1.30) Estimate Glomerular Filtration Rate > 60 mL/min (>60) > 60 mL/min (>60) Glucose Level 115 MG/DL (74-106) H 97 MG/DL (74-106) Calcium Level 8.2 MG/DL (8.5-10.1) L 8.2 MG/DL (8.5-10.1) L Magnesium Level 1.8 MG/DL (1.8-2.4) Total Bilirubin 0.3 MG/DL (0.2-1.0) 0.3 MG/DL (0.2-1.0) Aspartate Amino Transferase (AST) 15 U/L (15-37) 17 U/L (15-37) Alanine Aminotransferase (ALT) 25 U/L (12-78) 27 U/L (12-78) Alkaline Phosphatase 33 U/L (46-116) L 38 U/L (46-116) L Total Protein 6.6 G/DL (6.4-8.2) 6.2 G/DL (6.4-8.2) L Albumin 2.9 G/DL (3.4-5.0) L 2.7 G/DL (3.4-5.0) L Globulin 3.7 g/dL 3.5 g/dL Albumin/Globulin Ratio 0.8 (1.0-2.7) L 0.8 (1.0-2.7) L Reticulocyte Count Pending Hemoglobin A1c 4.9 % (4.3-6.0) Iron Level 18 ug/dL (50-175) L Total Iron Binding Capacity 229 ug/dL (250-450) L Percent Iron Saturation 8 % (15-50) L Unsaturated Iron Binding 211 ug/dL (112-346) Ferritin 137 NG/ML (8-388) Vitamin B12 Level 1360 PG/ML (193-986) H Folate 30.6 NG/ML (8.6-58.9) Hansel Jacobs M.D. Jan 07, 2019 09:41
--- NOTE | 2019-01-07 10:48 | Infectious Diseases Prog Note ---
Assessment/Plan Assessment/Plan IMPRESSION: 1. Right breast abscess, status post I and D. Cultures: Prevotella 2. Protein malnutrition. 3. The patient has iron deficiency anemia. RECOMMENDATION: Continue cefepime, Flagyl and vancomycin Will f/u cultures & narrow antibiotics Subjective ROS Limited/Unobtainable: No Constitutional: Reports: other - didn't feel good last night Respiratory: Reports: no symptoms Breasts: Reports: other - pain Cardiovascular: Reports: no symptoms Gastrointestinal/Abdominal: Reports: no symptoms Genitourinary: Reports: no symptoms Allergies: Coded Allergies: LATEX (Verified Allergy, Unknown, 01/05/19) Uncoded Allergies: hay fever (Allergy, Mild, 01/05/19) Objective Vital Signs Last 24 Hour Vital Signs Date Time Temp Pulse Resp B/P (MAP) Pulse Ox O2 Delivery O2 Flow Rate FiO2 01/07/19 08:00 98.1 88 17 108/72 (84) 98 01/07/19 07:55 Room Air 01/07/19 04:00 98.2 80 18 97/64 (75) 98 01/07/19 00:00 98.3 80 19 94/70 (78) 98 01/06/19 21:00 Room Air 01/06/19 20:00 98.0 84 18 112/74 (87) 98 01/06/19 18:38 98.3 01/06/19 15:58 98.3 80 18 121/74 (90) 98 01/06/19 12:00 98.3 97 18 115/77 (90) 98 Height (Feet): 5 Height (Inches): 6.00 Weight (Pounds): 120 General Appearance: no acute distress HEENT: mucous membranes moist Respiratory/Chest: lungs clear Cardiovascular: normal rate Abdomen: soft, non tender Skin: other - R breast ulcer at abscess site Neurologic/Psychiatric: alert, oriented x 3, responsive Microbiology Date/Time Source Procedure Growth Status 01/05/19 17:30 Blood Blood Culture - Preliminary NO GROWTH AFTER 24 HOURS Resulted 01/05/19 17:15 Blood Blood Culture - Preliminary NO GROWTH AFTER 24 HOURS Resulted Laboratory Tests Test 01/07/19 05:40 01/07/19 08:00 White Blood Count 7.2 K/UL (4.8-10.8) Red Blood Count 3.16 M/UL (4.20-5.40) L Hemoglobin 9.4 G/DL (12.0-16.0) L Hematocrit 28.2 % (37.0-47.0) L Mean Corpuscular Volume 89 FL (80-99) Mean Corpuscular Hemoglobin 29.8 PG (27.0-31.0) Mean Corpuscular Hemoglobin Concent 33.4 G/DL (32.0-36.0) Red Cell Distribution Width 11.6 % (11.6-14.8) Platelet Count 204 K/UL (150-450) Mean Platelet Volume 6.7 FL (6.5-10.1) Neutrophils (%) (Auto) 66.1 % (45.0-75.0) Lymphocytes (%) (Auto) 20.6 % (20.0-45.0) Monocytes (%) (Auto) 9.1 % (1.0-10.0) Eosinophils (%) (Auto) 3.0 % (0.0-3.0) Basophils (%) (Auto) 1.2 % (0.0-2.0) Sodium Level 135 MMOL/L (136-145) L Potassium Level 3.6 MMOL/L (3.5-5.1) Chloride Level 105 MMOL/L (98-107) Carbon Dioxide Level 27 MMOL/L (21-32) Anion Gap 3 mmol/L (5-15) L Blood Urea Nitrogen 7 mg/dL (7-18) Creatinine 0.7 MG/DL (0.55-1.30) Estimat Glomerular Filtration Rate > 60 mL/min (>60) Glucose Level 106 MG/DL (74-106) Calcium Level 7.9 MG/DL (8.5-10.1) L Thyroid Stimulating Hormone (TSH) 1.425 uiU/mL (0.358-3.740) Vancomycin Level Trough 4.9 ug/mL (5.0-12.0) L Current Medications Medications (Trade) Dose Ordered Sig/Lali Route PRN Reason Start Time Stop Time Status Last Admin Dose Admin Acetaminophen (Tylenol) 500 mg Q4H PRN ORAL Mild Pain/Temp > 100.5 01/05/19 15:45 02/04/19 15:44 Acetaminophen/ Codeine Phosphate (Tylenol #3) 1 tab Q6H PRN ORAL moderate pain 01/05/19 15:45 01/12/19 15:44 Acetaminophen/ Hydrocodone Bitart ([place] 5/325) 1 tab Q6H PRN ORAL Severe Pain (Pain Scale 7-10) 01/05/19 15:45 01/12/19 15:44 01/06/19 18:04 Ascorbic Acid (Vitamin C) 500 mg TID ORAL 01/06/19 13:00 02/05/19 12:59 01/07/19 09:11 Cefepime HCl 2 gm/ Dextrose 55 ml @ 110 mls/hr Q12H IVPB 01/05/19 18:00 01/12/19 17:59 01/07/19 05:18 Diphenhydramine HCl (Benadryl) 25 mg Q6H PRN ORAL Itching 01/05/19 20:45 02/04/19 20:44 01/05/19 23:41 Famotidine (Pepcid) 20 mg DAILY ORAL 01/07/19 10:00 02/06/19 09:59 01/07/19 09:45 Loratadine (Claritin 10mg) 10 mg DAILYPRN PRN ORAL CONGESTION 01/06/19 08:15 02/05/19 08:14 01/06/19 08:45 Metronidazole 100 ml @ 100 mls/hr Q8H IVPB 01/06/19 15:00 01/13/19 14:59 01/07/19 06:23 Ondansetron HCl (Zofran) 4 mg Q6H PRN IVP Nausea & Vomiting 01/05/19 16:00 02/04/19 15:59 Sodium Chloride 1,000 ml @ 75 mls/hr [id number] IV 01/07/19 10:00 02/04/19 09:59 01/07/19 09:45 Vancomycin HCl (Vanco rx to dose) 1 ea DAILY PRN MISC Per rx protocol 01/05/19 15:45 02/04/19 15:44 Vancomycin HCl 750 mg/Sodium Chloride 275 ml @ 183.333 mls/hr Q6H IVPB 01/07/19 10:00 01/11/19 08:59 01/07/19 09:46 Lg Crabtree MD Jan 07, 2019 10:48
--- NOTE | 2019-01-07 11:23 | General Progress Note ---
Assessment/Plan Status: stable Status Narrative s/p I&D right breast abscess Assessment/Plan: IV abx per ID ID consult apprecated awaiting sensitivities to cultures start probiotics daily dressing changes to be done by me Subjective Date patient seen: Jan 07, 2019 ROS Limited/Unobtainable: No Allergies: Coded Allergies: LATEX (Verified Allergy, Unknown, 01/05/19) Uncoded Allergies: hay fever (Allergy, Mild, 01/05/19) All Systems: reviewed and negative except above Subjective some nausea overnight but now feeling better, pain controlled, denies F/C/NV Objective Last 24 Hour Vital Signs Date Time Temp Pulse Resp B/P (MAP) Pulse Ox O2 Delivery O2 Flow Rate FiO2 01/07/19 08:00 98.1 88 17 108/72 (84) 98 01/07/19 07:55 Room Air 01/07/19 04:00 98.2 80 18 97/64 (75) 98 01/07/19 00:00 98.3 80 19 94/70 (78) 98 01/06/19 21:00 Room Air 01/06/19 20:00 98.0 84 18 112/74 (87) 98 01/06/19 18:38 98.3 01/06/19 15:58 98.3 80 18 121/74 (90) 98 01/06/19 12:00 98.3 97 18 115/77 (90) 98 Intake and Output 01/06/19 01/07/19 19:00 07:00 Intake Total 2365.000 ml 480 ml Balance 2365.000 ml 480 ml Intake Oral 800 ml 480 ml IV Total 1565.000 ml # Voids 3 3 Laboratory Tests 01/07/19 05:40: White Blood Count 7.2, Red Blood Count 3.16L, Hemoglobin 9.4L, Hematocrit 28.2L , Mean Corpuscular Volume 89, Mean Corpuscular Hemoglobin 29.8, Mean Corpuscular Hemoglobin Concent 33.4, Red Cell Distribution Width 11.6, Platelet Count 204, Mean Platelet Volume 6.7, Neutrophils (%) (Auto) 66.1, Lymphocytes (% ) (Auto) 20.6, Monocytes (%) (Auto) 9.1, Eosinophils (%) (Auto) 3.0, Basophils ( %) (Auto) 1.2, Sodium Level 135L, Potassium Level 3.6, Chloride Level 105, Carbon Dioxide Level 27, Anion Gap 3L, Blood Urea Nitrogen 7, Creatinine 0.7, Estimat Glomerular Filtration Rate > 60, Glucose Level 106, Calcium Level 7.9L, Thyroid Stimulating Hormone (TSH) 1.425 01/07/19 08:00: Vancomycin Level Trough 4.9L Height (Feet): 5 Height (Inches): 6.00 Weight (Pounds): 120 Objective Right beast swelling improved, erythema resolved. packing changed at bedside. min serous drainage. no pus expressed Vishnu Tam MD Jan 07, 2019 11:23
[2019-01-07 12:00] VITALS: BP 111/74
--- NOTE | 2019-01-07 15:32 | NUR ---
CASE MANAGEMENT: REVIEW 01/07/19 S/P FAT TX TO [facility]ISH[facility] BREAST FROM [facility]SIDE [facility] S/P ID SI: RIGHT BREAST ABSCESS 98.1 88 17 108/72 98% ON RA CA+ 7.9 ANION GAP 3 IS: IVF NS @75HR IV VANCOMYCIN Q12HR IV CEFEPIME Q12HR IV METRONIDAZOLE Q8HR FEOSOL PO TID : 3E MED SURG UNIT PLAN: QD DRESSING CHANGES PER DR. DWYER
[2019-01-07 16:00] VITALS: BP 99/74
--- NOTE | 2019-01-07 19:44 | NUR ---
HAND-OFF: Report given to charge nurse Rhina Nevarez RN. Patient stable.
--- NOTE | 2019-01-07 19:45 | NUR ---
NURSE NOTES: Receive a report from NIKI Vang. Round is done. Pt is awake and alert. No acute distress noted. Pain is tolerable state and asks pain medication at bedtime. Main fluid and ATB treatment are on left hand without infiltration. Call light within reach. Will continue to monitor.
[2019-01-07 20:00] VITALS: BP 114/78
[2019-01-07] MEDS ORDERED: MELATONIN 2.5 MG ORAL SCH (21:00)
--- NOTE | 2019-01-07 21:30 | NUR ---
NURSE NOTES: Dressing underneath right breast has been soaked with mild blood oozing. Change dressing with 4x4 gauze and tegarderm. Given pain medication as ordered. Explains of care of plans. Pt verbalizes understanding. Will continue to monitor.
[2019-01-08] VITALS: BP 123/100
[2019-01-08 03:13] LABS: BASOPHILS % (AUTO) 0.6 % (0.0-2.0); EOSINOPHILS % (AUTO) 4.1 % (0.0-3.0); HEMATOCRIT 28.9 % (37.0-47.0); HEMOGLOBIN 9.8 G/DL (12.0-16.0); LYMPHOCYTES % (AUTO) 27.4 % (20.0-45.0); MEAN CORPUSCULAR VOLUME 87 FL (80-99); MONOCYTES % (AUTO) 10.7 % (1.0-10.0); NEUTROPHILS % (AUTO) 57.2 % (45.0-75.0); PLATELET COUNT 253 K/UL (150-450); RED BLOOD COUNT 3.31 M/UL (4.20-5.40); RED CELL DISTRIBUTION WIDTH 11.5 % (11.6-14.8); WHITE BLOOD COUNT 8.1 K/UL (4.8-10.8)
[2019-01-08 03:32] LABS: ALANINE AMINOTRANSFERASE 22 U/L (12-78); ALBUMIN 2.7 G/DL (3.4-5.0); ALBUMIN/GLOBULIN RATIO 0.8 (1.0-2.7); ALKALINE PHOSPHATASE 34 U/L (46-116); ANION GAP 6 mmol/L (5-15); ASPARTATE AMINO TRANSFERASE 11 U/L (15-37); BILIRUBIN,TOTAL 0.2 MG/DL (0.2-1.0); BLOOD UREA NITROGEN 7 mg/dL (7-18); CALCIUM 8.4 MG/DL (8.5-10.1); CARBON DIOXIDE 28 MMOL/L (21-32); CHLORIDE 108 MMOL/L (98-107); CREATININE 0.6 MG/DL (0.55-1.30); POTASSIUM 4.1 MMOL/L (3.5-5.1); SODIUM 142 MMOL/L (136-145)
[2019-01-08 04:00] VITALS: BP 106/67
[2019-01-08] MEDS: Vancomycin 750mg/NS 275ml IVPB SCH ×4 (04:29→10:00)
[2019-01-08] MEDS: Cefepime HCl 2 GM in D5W 55 ML IVPB SCH (06:03)
--- NOTE | 2019-01-08 07:24 | NUR ---
HAND-OFF: Report given to NIKI Gibson. Round is done.
--- NOTE | 2019-01-08 07:25 | NUR ---
NURSE NOTES: Received patient awake, alert and oriented, lying comfortably in bed. IV at left hand 22 gauge, infusing NS @ 75 ml/hour. Family at bedside. Bed at lowest level with 2 side rails up. Call light within reach. In no apparent distress at this time. Will continue to monitor.
[2019-01-08 08:00] VITALS: BP 106/74
[2019-01-08] MEDS ORDERED: BIFIDOBACTERIUM ORAL SCH (09:00)
[2019-01-08] MEDS ORDERED: MAGNESIUM L THREONATE ORAL SCH (09:00)
[2019-01-08] MEDS ORDERED: LACTOBACILLUS ORAL SCH (09:00)
[2019-01-08] MEDS: Ascorbic Acid 500mg tab ORAL SCH (09:08)
--- NOTE | 2019-01-08 09:56 | General Progress Note ---
Assessment/Plan Status: stable Status Narrative s/p I&D rt breast abscess Assessment/Plan: D/C planning, ok for discharge by plastics oral antibiotics per ID probiotics daily dressing changes to be done by me, pt follow up thursday for dressing change Subjective Date patient seen: Jan 08, 2019 ROS Limited/Unobtainable: No Allergies: Coded Allergies: LATEX (Verified Allergy, Unknown, 01/05/19) Uncoded Allergies: hay fever (Allergy, Mild, 01/05/19) All Systems: reviewed and negative except above Subjective feeling better, pain controlled, denies F/C/NV Objective Last 24 Hour Vital Signs Date Time Temp Pulse Resp B/P (MAP) Pulse Ox O2 Delivery O2 Flow Rate FiO2 01/08/19 04:00 98.3 76 18 106/67 (80) 98 01/08/19 00:00 98.5 76 20 123/100 (108) 98 01/07/19 21:00 Room Air 01/07/19 20:00 98.0 83 18 114/78 (90) 96 01/07/19 16:00 98.1 74 19 99/74 (82) 100 01/07/19 12:00 98.8 80 17 111/74 (86) 98 Intake and Output 01/07/19 01/08/19 18:59 06:59 Intake Total 1937.500 ml 832.5 ml Balance 1937.500 ml 832.5 ml Intake Oral 500 ml 250 ml IV Total 1437.500 ml 582.5 ml # Voids 3 2 Laboratory Tests 01/08/19 03:00: White Blood Count 8.1, Red Blood Count 3.31L, Hemoglobin 9.8L, Hematocrit 28.9L , Mean Corpuscular Volume 87, Mean Corpuscular Hemoglobin 29.8, Mean Corpuscular Hemoglobin Concent 34.1, Red Cell Distribution Width 11.5L, Platelet Count 253, Mean Platelet Volume 6.0L, Neutrophils (%) (Auto) 57.2, Lymphocytes (%) (Auto) 27.4, Monocytes (%) (Auto) 10.7H, Eosinophils (%) (Auto) 4.1H, Basophils (%) (Auto) 0.6, Sodium Level 142, Potassium Level 4.1, Chloride Level 108H, Carbon Dioxide Level 28, Anion Gap 6, Blood Urea Nitrogen 7, Creatinine 0.6, Estimat Glomerular Filtration Rate > 60, Glucose Level 94, Calcium Level 8.4L, Total Bilirubin 0.2, Aspartate Amino Transf (AST/SGOT) 11L, Alanine Aminotransferase (ALT/SGPT) 22, Alkaline Phosphatase 34L, Total Protein 6.1L, Albumin 2.7L, Globulin 3.4, Albumin/Globulin Ratio 0.8L, Vancomycin Level Trough 15.0H Height (Feet): 5 Height (Inches): 6.00 Weight (Pounds): 120 Objective Right beast swelling resolved, erythema resolved. packing changed at bedside. min serous drainage. no pus expressed Vishnu Tam MD Jan 08, 2019 09:56
[2019-01-08] MEDS ORDERED: NORCO 5-325 TA1 EACH ORAL (10:16)
[2019-01-08] MEDS ORDERED: LORATADINE10 M2 ORAL (10:16)
[2019-01-08] MEDS ORDERED: ASCORBIC ACID500 M4 ORAL (10:16)
[2019-01-08] MEDS ORDERED: CLEOCIN HCL300 MG PO (10:16)
[2019-01-08] MEDS ORDERED: FAMOTIDINE20 MG ORAL (10:16)
[2019-01-08] MEDS ORDERED: Patient's Own Med ORAL ×2 (10:16)
[2019-01-08] MEDS ORDERED: ONDANSETRON ODT4 MG BC (10:16)
--- NOTE | 2019-01-08 10:17 | Discharge Instructions ---
Discharge Instructions Discharge Instructions Special Instructions follow up with Dr. Tam in his office for dressing changes For Congestive Heart Failure Reminder Report to your physician any weight gain of 5 pounds or more in one week. Hansel Jacobs M.D. Jan 08, 2019 10:17
--- NOTE | 2019-01-08 10:24 | Discharge Summary ---
Discharge Summary Hospital Course Date of Admission Jan 05, 2019 at 14:38 Date of Discharge 01/08/2019 Admitting Diagnosis right breast abscess HPI Jenifer Yepez is a 43 year old female who was admitted on Jan 05, 2019 at 14: 38 for Breast Abcess Consultations Plastic surgery: Dr. Vishnu Tam, ID: Dr. Samaniego Procedures s/p I &D Hospital Course 43 year old with R breast abscess after liposuction and fat transfer, now s/p ID. Afebrile, normal BP, mild leukocytosis without left shift resolving. #R breast cellulitis/ abscess. #History of frequent superficial abscesses. ? Staphylococcal carriage vs underlying primary immunodeficiency (i.e chronic granulomatous disease) #r/o DM HbA1c 4.9 -medsurg -Dr. Vishnu Tam plastic surgery consult- d/w -follow up gm stain and culture from I&D ----> 3+ gram positive cocci, 2+ gram negative rods, 3+ PMN's, Anaerobic culture: 4+ Prevotella Bivia Beta lactamase positive. No growth for 2 days on aerobic sample. -s/p IV NS -IV Cefepime (01/05-01/08) -IV Vancomycin (01/05-01/08) pharmacy to dose -IV metronidazole (01/06-01/08), poorly tolerated -Probiotics -Blood cultures x2- negative to date -ID consult with Dr. Crabtree - d/w -Consider outpatient immunology follow up. Genetic testing -Nasal swab culture for MRSA - NEGATIVE -Pain control -d/w rn -Switch to PO antibiotics for discharge, d/w ID. Switch to Clindamycin 300 mg every 6 hrs for 7 days. To go to Dr. Tam's office for dressing changes and wound care. #Normocytic anemia, Iron panel consistent with iron deficiency. B12 and folate levels are okay. Has heavy menses and also could be component of nutritional deficiency and lack of eating red meat. Patient knows she has iron deficiency, takes supplements on and off, doesn't think it works. -Will hold off on iron supplements since has an infection now. -encourage PO intake #Hypoalbuminemia, lymphopenia. consistent with mild protein calorie malnutrition. Says recent HIV testing is negative. Asked to bring copy of recent blood work #Hypocalcemia- corrected is normal at 8.9 . due to low albumin Encouraged po intake. Patient to ask for previous lab results. She is not aware of low albumin. vte ppx: ambulation, scd boots GI ppx: Famotidine Diet: Regular Code status: Full code Today on exam she looks well. alert, awake and oriented. Dressing changed by Dr. Tam. lung cta bl, ext: no edema. I spent 35 minutes during this encounter. > 50% spent on counselling and care coordination. Plan of care discussed with patient and , and Dr Fountain. Discharge Medications New Medications: Clindamycin Hcl (Cleocin Hcl) 300 Mg Capsule 300 MG PO Q6HR for 7 Days, #30 CAP Ondansetron Odt* (Zofran Odt*) 4 Mg Tab.rapdis 4 MG BC EVERY 8 HOURS PRN for 7 Days, #10 TAB 0 Refills Ascorbic Acid* (Ascorbic Acid*) 500 Mg Tablet 500 MG ORAL TID for 30 Days, #30 TAB Famotidine* (Pepcid 20mg tablet*) 20 Mg Tablet 20 MG ORAL DAILY for 30 Days, #30 TAB Hydrocodone Bit/Acetaminophen 5-325* (Bond 5-325*) 1 Each Tablet 1 TAB ORAL Q6H PRN for 7 Days, #14 TAB Loratadine (Loratadine) 10 Mg Tablet 10 MG ORAL DAILYPRN PRN for 30 Days, #30 TAB [Patient's Own Med] () 1 EA EA 1 EA ORAL DAILY [Patient's Own Med] () 1 EA EA 1 EA ORAL QHS [Patient's Own Med] () 1 EA EA 1 EA ORAL DAILY Discharge Condition Upon Discharge: stable Discharge Disposition Patient was discharged to home Discharge Diagnoses: (1) Abscess of right breast (2) Iron deficiency anemia (3) Lymphopenia (4) Mild protein-calorie malnutrition Hansel Jacobs M.D. Jan 08, 2019 10:24
[2019-01-08] MEDS ORDERED: NS 275ml ONE (11:05)
[2019-01-08] MEDS ORDERED: Tubing IV Secondary IV ONE (11:05)
--- NOTE | 2019-01-08 11:09 | NUR ---
NURSE NOTES: Patient discharged. IV and ID band removed. Belongings accounted for. Personal medications returned to patient. Discharge instructions given and patient verbalized understanding. Escorted from facility to private vehicle without incident or injury.
--- NOTE | 2019-01-09 14:57 | NUR ---
CASE MANAGEMENT: CM review and clinical information (face sheet/ H&P/ DC summary/ progress notes) faxed to [employer] @ [phone]. Ref# [id number]
== END 2019-01-08 11:06 | disposition home or self-care (01) | DRG 600 ==
LOC: 3E 14:38
DX: N61.1 Abscess of the breast and nipple (principal); E44.1 Mild protein-calorie malnutrition; Z68.1 Body mass index [BMI] 19.9 or less, adult; D50.9 Iron deficiency anemia, unspecified; D72.810 Lymphocytopenia; E83.51 Hypocalcemia
CPT/HCPCS: 36415; 80048; 80053; 80202; 82607; 82728; 82746; 83036; 83540; 83550; 83735; 84443; 85025; 85044; 85610; 85730; 87040; 87081; J2405; J7030